=== PATIENT | female | born 1980 | race American Indian/Alaskan Native ===

== ENCOUNTER 2016-12-03 16:57 | Emergency (ER) | payer OTHER ==
[2016-12-03] MEDS ORDERED: TYLENOL ONE ×2 (17:15→17:26)
[2016-12-03] MEDS ORDERED: NACL 0.9% 500 ML 500 ML IV ONE (17:27)
[2016-12-03] MEDS ORDERED: TYLENOL PO ONE (17:30)
--- NOTE | 2016-12-03 17:53 | Emergency Department Report ---
Entered by TATE VANEGAS, acting as scribe for SILVIO OLIVAREZ PA. Chief Complaint: Dizziness Stated Complaint: DIZZINESS/FEVER Time Seen by Provider: 12/03/16 17:20 - HPI History of Present Illness: 36 y/o female presents c/o dizziness that started 2 weeks ago. Sx include fever , nausea, light headedness, increase in urination frequency but pt denies v/d. - ROS Review of Systems: as noted in HPI - Exam Vital Signs: Vital Signs 12/03/16 12/03/16 17:14 17:40 Temperature 101.4 F H Pulse Rate 111 H Respiratory 17 17 Rate Blood Pressure 119/69 O2 Sat by Pulse 98 Oximetry Physical Exam: General: 36 y/o female in no acute distress. Well-developed, well-nourished. CV: Regular rate and rhythm. No murmurs rubs or gallops. Lungs: Clear to auscultation bilaterally. Abdomen: RLQ tenderness to palpation. No guarding or rebound tenderness. Normal bowel sounds. Mini Neuro: Alert and oriented 3. MSE screening note: Focused history and physical exam performed. Due to findings the following was ordered:sepsis protocol initiated by triage nurse ED Disposition for MSE Condition: Stable This documentation as recorded by the scribe,TATE VANEGAS,accurately reflects the service I personally performed and the decisions made by SHER garcia FABIOLA N, PA.
[2016-12-03 18:23] LABS: Alanine Aminotransferase 9 units/L (7-56); Albumin 3.8 g/dL (3.9-5); Alkaline Phosphatase 80 units/L (35-129); Anion Gap 16 mmol/L; Blood Urea Nitrogen 12 mg/dL (7-17); Carbon Dioxide 23 mmol/L (22-30); Chloride 96.6 mmol/L (98-107); Glucose 98 mg/dL (65-100); Potassium 3.8 mmol/L (3.6-5.0); Sodium 132 mmol/L (137-145); Total Protein 7.7 g/dL (6.3-8.2)
[2016-12-03 18:28] LABS: Hematocrit 33.8 % (30.3-42.9); Hemoglobin 11.1 gm/dl (10.1-14.3); Mean Corpuscular HGB Conc 33 % (30-34); Mean Corpuscular Hemoglobin 27 pg (28-32); Mean Corpuscular Volume 82 fl (79-97); Platelet Count 397 K/mm3 (140-440); Red Blood Count 4.14 M/mm3 (3.65-5.03); Red Cell Distribution Width 14.7 % (13.2-15.2); White Blood Count 3.5 K/mm3 (4.5-11.0)
[2016-12-03 18:37] LABS: INR 1.07 (0.87-1.13)
[2016-12-03 19:09] LABS: Bilirubin,Urine NEG (Negative); Blood,Urine LG (Negative); Ketones,Urine NEG (Negative); Leukocyte Esterase,Urine NEG (Negative); Nitrite,Urine NEG (Negative); Protein,Urine <15 mg/dL mg/dL (Negative)
[2016-12-03 19:22] LABS: Anisocytosis 1+; Basophils % (Manual) 0 % (0.0-1.8); Blastocytes % (Manual) 0 %; Diff Status Complete; Ovalocytes 1+; Platelet Estimate Consistent w Auto
[2016-12-03 20:56] LABS: Bilirubin,Urine NEG (Negative); Blood,Urine LG (Negative); Ketones,Urine NEG (Negative); Leukocyte Esterase,Urine NEG (Negative); Mucus,Urine FEW /HPF; Nitrite,Urine NEG (Negative); Protein,Urine <15 mg/dL mg/dL (Negative)
[2016-12-03] MEDS ORDERED: NACL 0.9% 1000 ML 2,000 ML IV ONE (20:58)
[2016-12-03] MEDS ORDERED: ANTIVERT PO ONE (20:58)
[2016-12-03] MEDS ORDERED: TORADOL IV ONE (20:58)
--- NOTE | 2016-12-03 21:01 | Emergency Department Report ---
ED General Adult HPI - General Chief complaint: Dizziness Stated complaint: DIZZINESS/FEVER Time Seen by Provider: 12/03/16 20:43 Source: patient, RN notes reviewed Mode of arrival: Ambulatory Limitations: No Limitations - History of Present Illness Initial comments: This is a 36-year-old female. She is previously unknown to me. Her primary care provider is at [place]. She does not recall their name. Her multiple sclerosis physician is Dr. Lew Chambers; she reports not taking any medications for her multiple sclerosis at the current time. The patient presents to the ER complaining of dizziness. The dizziness started at 11:30 in the morning. It is described as a sensation of room spinning. It is intermittent. There is no tinnitus, there is no change in auditory acuity, there is no severe headache. There is no sore throat. There is no chest pain. There is no shortness of breath. There is mild dry cough with occasional mucous. The patient denies hematemesis, bright red blood per rectum, irritative and obstructive urinary symptoms. She reports that she is currently on her menstruation and that she is not . She reports intermittent right lower quadrant pain and pressure, which is described as achy in nature. She reports having an outpatient CAT scan a few weeks ago which she thinks demonstrated a "thrombosis." She denies vaginal discharge, and she indicates one sexual partner within the past year, denies vaginal discharge at this time. She reports that she gave a urinalysis at her primary care provider's office, and was placed on Flagyl. She reports completing the Flagyl, but not having any symptoms at that time. -: Gradual Location: abdomen Severity scale (0 -10): 2 Quality: aching Consistency: intermittent Improves with: rest Worsens with: movement Associated Symptoms: cough, fever/chills, other (per hpi). denies: confusion, chest pain, loss of appetite, malaise, nausea/vomiting, shortness of breath, syncope, weakness - Related Data Previous Rx's Medication Instructions Recorded Last Taken Type Dicyclomine [Bentyl] 10 mg PO QID PRN #20 capsule 12/03/16 Unknown Rx Ketorolac [Toradol] 10 mg PO Q6H PRN #20 tablet 12/03/16 Unknown Rx Meclizine [Antivert] 25 mg PO TID PRN #20 tablet 12/03/16 Unknown Rx Ondansetron [Zofran Odt] 4 mg PO QID PRN #20 tab.rapdis 12/03/16 Unknown Rx Allergies Allergy/AdvReac Type Severity Reaction Status Date / Time No Known Allergies Allergy Unverified 12/03/16 17:11 ED Review of Systems ROS: Stated complaint: DIZZINESS/FEVER Other details as noted in HPI Constitutional: denies: fever Eyes: denies: vision change ENT: denies: epistaxis Respiratory: denies: cough Cardiovascular: denies: chest pain Gastrointestinal: abdominal pain Genitourinary: as per HPI. denies: dysuria, frequency, discharge Musculoskeletal: as per HPI Skin: denies: lesions Neurological: vertigo. denies: abnormal gait Psychiatric: as per HPI ED Past Medical Hx - Past Medical History Additional medical history: MULTIPLE SCLEROSIS - Surgical History Additional Surgical History: - Social History Smoking Status: Never Smoker Substance Use Type: Alcohol - Medications Home Medications: Home Medications Medication Instructions Recorded Confirmed Last Taken Type Dicyclomine [Bentyl] 10 mg PO QID PRN #20 capsule 12/03/16 Unknown Rx Ketorolac [Toradol] 10 mg PO Q6H PRN #20 tablet 12/03/16 Unknown Rx Meclizine [Antivert] 25 mg PO TID PRN #20 tablet 12/03/16 Unknown Rx Ondansetron [Zofran Odt] 4 mg PO QID PRN #20 tab.rapdis 12/03/16 Unknown Rx ED Physical Exam - General Limitations: No Limitations General appearance: alert, in no apparent distress - Head Head exam: Present: atraumatic, normocephalic - Eye Eye exam: Present: normal appearance, PERRL, EOMI, other (visual acuity intact to finger counting, color perception, reading at a close distance.). Absent: nystagmus - ENT ENT exam: Present: normal exam, normal orophraynx, mucous membranes moist, TM's normal bilaterally, normal external ear exam, other (there is no mastoid tenderness. There is no helix tenderness.) - Neck Neck exam: Present: normal inspection, full ROM. Absent: tenderness, meningismus - Respiratory Respiratory exam: Present: normal lung sounds bilaterally. Absent: respiratory distress, wheezes, rales, rhonchi, stridor, chest wall tenderness, accessory muscle use, decreased breath sounds, prolonged expiratory - Cardiovascular Cardiovascular Exam: Present: normal rhythm, tachycardia, normal heart sounds. Absent: systolic murmur, diastolic murmur, rubs, gallop - GI/Abdominal GI/Abdominal exam: Present: soft, tenderness, normal bowel sounds, other (there is mild right lower quadrant tenderness, there is no rebound, guarding or peritoneal signs). Absent: distended, guarding, rebound, rigid, pulsatile mass - External exam: Present: normal external exam Speculum exam: Present: vaginal bleeding Bi-manual exam: Present: normal bi-manual exam, other (escorted by nurse CHIO GRAY). Absent: cervical motion tendernes, adnexal tenderness, adnexal mass - Extremities Exam Extremities exam: Present: normal inspection, full ROM, normal capillary refill. Absent: tenderness, pedal edema, joint swelling, calf tenderness - Back Exam Back exam: Present: normal inspection, full ROM. Absent: tenderness, CVA tenderness (R), CVA tenderness (L), muscle spasm, paraspinal tenderness, vertebral tenderness - Neurological Exam Neurological exam: Present: alert, oriented X3, normal gait (normal gait, normal tandem gait, negative Romberg, normal [id number], negative pass pointing, no pronator drift.), other (Extraocular movements intact. Tongue midline. No facial droop. Facial sensation intact to light touch in the V1, V2 , V3 distribution bilaterally. 5 and 5 strength in 4 extremities.. Sensation is intact to light touch in 4 extremities.). Absent: motor sensory deficit - Psychiatric Psychiatric exam: Present: normal affect, normal mood - Skin Skin exam: Present: warm, dry, intact, normal color. Absent: rash ED Course Vital Signs 12/03/16 12/03/16 12/03/16 17:14 17:40 18:40 Temperature 101.4 F H Pulse Rate 111 H Respiratory 17 17 18 Rate Blood Pressure 119/69 O2 Sat by Pulse 98 Oximetry 12/03/16 12/03/16 12/03/16 19:06 19:10 19:20 Temperature Pulse Rate 97 H 99 H 94 H Respiratory 27 H 25 H 18 Rate Blood Pressure 108/59 113/66 O2 Sat by Pulse 98 97 Oximetry 12/03/16 12/03/16 12/03/16 19:30 19:35 19:40 Temperature 99.7 F H Pulse Rate 93 H 96 H Respiratory 19 25 H Rate Blood Pressure 113/66 120/65 O2 Sat by Pulse 98 Oximetry 12/03/16 12/03/16 12/03/16 19:50 20:00 20:17 Temperature Pulse Rate 93 H 94 H 98 H Respiratory 20 23 22 Rate Blood Pressure 115/64 115/64 113/66 O2 Sat by Pulse 98 96 99 Oximetry 12/03/16 12/03/16 12/03/16 20:21 20:31 20:41 Temperature Pulse Rate 99 H 94 H 97 H Respiratory 26 H 26 H 24 Rate Blood Pressure 113/66 107/59 111/62 O2 Sat by Pulse 98 100 99 Oximetry 12/03/16 12/03/16 12/03/16 21:13 21:19 22:39 Temperature Pulse Rate Respiratory 18 Rate Blood Pressure 120/74 115/67 O2 Sat by Pulse 98 98 Oximetry 12/03/16 12/03/16 12/03/16 22:41 22:51 23:00 Temperature Pulse Rate 83 85 80 Respiratory 25 H 20 19 Rate Blood Pressure 115/67 109/63 110/65 O2 Sat by Pulse 98 98 98 Oximetry 12/03/16 12/03/16 12/03/16 23:11 23:21 23:23 Temperature Pulse Rate Respiratory 21 17 17 Rate Blood Pressure 110/65 109/61 109/61 O2 Sat by Pulse 97 97 97 Oximetry 12/03/16 23:30 Temperature Pulse Rate Respiratory 18 Rate Blood Pressure 108/58 O2 Sat by Pulse Oximetry - Reevaluation(s) Reevaluation #1: 12/03/16 21:23 Differential diagnosis: Viral labyrinthitis, peripheral vertigo, urinary tract infection, appendicitis, renal colic, urinary tract infection, pelvic inflammatory disease, ovarian cyst, nonspecific thrombosis Assessment and plan: 36-year-old female with nonspecific intermittent vertigo, and acute febrile illness, most likely viral labyrinthitis. Low-grade temperature appreciated, however she is remarkably well-appearing, and has a benign neurologic examination. Minimal lower abdominal tenderness which is acute on chronic, benign gynecologic examination. She will be treated symptomatically. Clinically doubt that she is bacteremic. Leukopenia is appreciated, she can follow up with the primary care physician for this. She will be treated symptomatically, we will obtain a CT scan of the abdomen and pelvis. We will reassess once this has resulted. Reevaluation #2: 12/03/16 22:54 the patient is reassessed. The abdomen is soft on repeat examination. The CT scan does not demonstrate any acute disease. Tachycardia resolved. The patient is tolerating liquid feeds. She feels improved. Wet prep is negative. The patient will be discharged with symptomatic therapy, instructions to follow up with primary care. Return precautions are extensively reviewed. ED Medical Decision Making - Lab Data Result diagrams: 12/03/16 17:39 12/03/16 17:39 Vital Signs 12/03/16 12/03/16 12/03/16 17:14 17:40 18:40 Temperature 101.4 F H Pulse Rate 111 H Respiratory 17 17 18 Rate Blood Pressure 119/69 O2 Sat by Pulse 98 Oximetry 12/03/16 12/03/16 12/03/16 19:06 19:10 19:20 Temperature Pulse Rate 97 H 99 H 94 H Respiratory 27 H 25 H 18 Rate Blood Pressure 108/59 113/66 O2 Sat by Pulse 98 97 Oximetry 12/03/16 12/03/16 12/03/16 19:35 20:17 20:21 Temperature 99.7 F H Pulse Rate 98 H 99 H Respiratory 22 26 H Rate Blood Pressure 113/66 113/66 O2 Sat by Pulse 99 98 Oximetry 12/03/16 21:19 Temperature Pulse Rate Respiratory 18 Rate Blood Pressure O2 Sat by Pulse Oximetry Lab Results 12/03/16 12/03/16 12/03/16 Range/Units 17:39 17:39 17:39 WBC 3.5 L (4.5-11.0) K/mm3 RBC 4.14 (3.65-5.03) M/mm3 Hgb 11.1 (10.1-14.3) gm/dl Hct 33.8 (30.3-42.9) % MCV 82 (79-97) fl MCH 27 L (28-32) pg MCHC 33 (30-34) % RDW 14.7 (13.2-15.2) % Plt Count 397 (140-440) K/mm3 [place] % (Auto) Coremaker Machine Add Manual Diff Complete Total Counted 100 Seg Neuts % (Manual) 77.0 H (40.0-70.0) % Band Neutrophils % 0 % Lymphocytes % (Manual) 8.0 L (13.4-35.0) % Reactive Lymphs % (Man) 0 % Monocytes % (Manual) 13.0 H (0.0-7.3) % Eosinophils % (Manual) 2.0 (0.0-4.3) % Basophils % (Manual) 0 (0.0-1.8) % Metamyelocytes % 0 % Myelocytes % 0 % Promyelocytes % 0 % Blast Cells % 0 % Nucleated RBC % Not Reportable Seg Neutrophils # Man 2.7 (1.8-7.7) K/mm3 Band Neutrophils # 0.0 K/mm3 Lymphocytes # (Manual) 0.3 L (1.2-5.4) K/mm3 Abs React Lymphs (Man) 0.0 K/mm3 Monocytes # (Manual) 0.5 (0.0-0.8) K/mm3 Eosinophils # (Manual) 0.1 (0.0-0.4) K/mm3 Basophils # (Manual) 0.0 (0.0-0.1) K/mm3 Metamyelocytes # 0.0 K/mm3 Myelocytes # 0.0 K/mm3 Promyelocytes # 0.0 K/mm3 Blast Cells # 0.0 K/mm3 WBC Morphology Not Reportable Hypersegmented Neuts Not Reportable Hyposegmented Neuts Not Reportable Hypogranular Neuts Not Reportable Smudge Cells Not Reportable Toxic Granulation Not Reportable Toxic Vacuolation Not Reportable Dohle Bodies Not Reportable Pelger-Huet Anomaly Not Reportable Serene Rods Not Reportable Platelet Estimate Consistent w auto Clumped Platelets Not Reportable Plt Clumps, EDTA Not Reportable Large Platelets Not Reportable Giant Platelets Not Reportable Platelet Satelliting Not Reportable Plt Morphology Comment Not Reportable RBC Morphology Not Reportable Dimorphic RBCs Not Reportable Polychromasia Not Reportable Hypochromasia Not Reportable Poikilocytosis Not Reportable Anisocytosis 1+ Microcytosis Not Reportable Macrocytosis Not Reportable Spherocytes Not Reportable Pappenheimer Bodies Not Reportable Sickle Cells Not Reportable Target Cells Not Reportable Tear Drop Cells Not Reportable Ovalocytes 1+ Helmet Cells Not Reportable Cuevas-Crandall Bodies Not Reportable Hickman Rings Not Reportable Nannette Cells Not Reportable Bite Cells Not Reportable Crenated Cell Not Reportable Elliptocytes Not Reportable Acanthocytes (Spur) Not Reportable Rouleaux Not Reportable Hemoglobin C Crystals Not Reportable Schistocytes Not Reportable Malaria parasites Not Reportable Rui Bodies Not Reportable Hem Pathologist Commnt No PT 13.8 (12.2-14.9) Sec. INR 1.07 (0.87-1.13) VBG pH (7.320-7.420) Sodium 132 L (137-145) mmol/L Potassium 3.8 (3.6-5.0) mmol/L Chloride 96.6 L (98-107) mmol/L Carbon Dioxide 23 (22-30) mmol/L Anion Gap 16 mmol/L BUN 12 (7-17) mg/dL Creatinine 0.8 (0.7-1.2) mg/dL Estimated GFR > 60 ml/min BUN/Creatinine Ratio 15.00 % Glucose 98 (65-100) mg/dL Lactic Acid (0.7-2.0) mmol/L Calcium 9.0 (8.4-10.2) mg/dL Total Bilirubin 0.40 (0.1-1.2) mg/dL AST 14 (5-40) units/L ALT 9 (7-56) units/L Alkaline Phosphatase 80 (35-129) units/L Total Protein 7.7 (6.3-8.2) g/dL Albumin 3.8 L (3.9-5) g/dL Albumin/Globulin Ratio 1.0 % Urine Color (Yellow) Urine Turbidity (Clear) Urine pH (5.0-7.0) Ur Specific [place] (1.003-1.030) Urine Protein (Negative) mg/dL Urine Glucose (UA) (Negative) mg/dL Urine Ketones (Negative) mg/dL Urine Blood (Negative) Urine Nitrite (Negative) Urine Bilirubin (Negative) Urine Urobilinogen (<2.0) mg/dL Ur Leukocyte Esterase (Negative) Urine WBC (Auto) (0.0-6.0) /HPF Urine RBC (Auto) (0.0-6.0) /HPF U Epithel Cells (Auto) (0-13.0) /HPF Urine Mucus /HPF Urine HCG, Qual (Negative) 12/03/16 12/03/16 12/03/16 Range/Units 17:39 17:39 18:52 WBC (4.5-11.0) K/mm3 RBC (3.65-5.03) M/mm3 Hgb (10.1-14.3) gm/dl Hct (30.3-42.9) % MCV (79-97) fl MCH (28-32) pg MCHC (30-34) % RDW (13.2-15.2) % Plt Count (140-440) K/mm3 [place] % (Auto) Add Manual Diff Total Counted Seg Neuts % (Manual) (40.0-70.0) % Band Neutrophils % % Lymphocytes % (Manual) (13.4-35.0) % Reactive Lymphs % (Man) % Monocytes % (Manual) (0.0-7.3) % Eosinophils % (Manual) (0.0-4.3) % Basophils % (Manual) (0.0-1.8) % Metamyelocytes % % Myelocytes % % Promyelocytes % % Blast Cells % % Nucleated RBC % Seg Neutrophils # Man (1.8-7.7) K/mm3 Band Neutrophils # K/mm3 Lymphocytes # (Manual) (1.2-5.4) K/mm3 Abs React Lymphs (Man) K/mm3 Monocytes # (Manual) (0.0-0.8) K/mm3 Eosinophils # (Manual) (0.0-0.4) K/mm3 Basophils # (Manual) (0.0-0.1) K/mm3 Metamyelocytes # K/mm3 Myelocytes # K/mm3 Promyelocytes # K/mm3 Blast Cells # K/mm3 WBC Morphology Hypersegmented Neuts Hyposegmented Neuts Hypogranular Neuts Smudge Cells Toxic Granulation Toxic Vacuolation Dohle Bodies Pelger-Huet Anomaly Serene Rods Platelet Estimate Clumped Platelets Plt Clumps, EDTA Large Platelets Giant Platelets Platelet Satelliting Plt Morphology Comment RBC Morphology Dimorphic RBCs Polychromasia Hypochromasia Poikilocytosis Anisocytosis Microcytosis Macrocytosis Spherocytes Pappenheimer Bodies Sickle Cells Target Cells Tear Drop Cells Ovalocytes Helmet Cells Cuevas-Crandall Bodies Hickman Rings [place] Cells Bite Cells Crenated Cell Elliptocytes Acanthocytes (Spur) Rouleaux Hemoglobin C Crystals Schistocytes Malaria parasites Rui Bodies Hem Pathologist Commnt PT (12.2-14.9) Sec. INR (0.87-1.13) VBG pH 7.395 (7.320-7.420) Sodium (137-145) mmol/L Potassium (3.6-5.0) mmol/L Chloride (98-107) mmol/L Carbon Dioxide (22-30) mmol/L Anion Gap mmol/L BUN (7-17) mg/dL Creatinine (0.7-1.2) mg/dL Estimated GFR ml/min BUN/Creatinine Ratio % Glucose (65-100) mg/dL Lactic Acid 0.70 (0.7-2.0) mmol/L Calcium (8.4-10.2) mg/dL Total Bilirubin (0.1-1.2) mg/dL AST (5-40) units/L ALT (7-56) units/L Alkaline Phosphatase (35-129) units/L Total Protein (6.3-8.2) g/dL Albumin (3.9-5) g/dL Albumin/Globulin Ratio % Urine Color Yellow (Yellow) Urine Turbidity Clear (Clear) Urine pH 7.0 (5.0-7.0) Ur Specific [place] 1.020 (1.003-1.030) Urine Protein <15 mg/dl (Negative) mg/dL Urine Glucose (UA) Neg (Negative) mg/dL Urine Ketones Neg (Negative) mg/dL Urine Blood Lg (Negative) Urine Nitrite Neg (Negative) Urine Bilirubin Neg (Negative) Urine Urobilinogen 2.0 (<2.0) mg/dL Ur Leukocyte Esterase Neg (Negative) Urine WBC (Auto) 1.0 (0.0-6.0) /HPF Urine RBC (Auto) 102.0 (0.0-6.0) /HPF U Epithel Cells (Auto) 1.0 (0-13.0) /HPF Urine Mucus /HPF Urine HCG, Qual (Negative) 12/03/16 12/03/16 12/03/16 Range/Units 20:08 20:30 20:31 WBC (4.5-11.0) K/mm3 RBC (3.65-5.03) M/mm3 Hgb (10.1-14.3) gm/dl Hct (30.3-42.9) % MCV (79-97) fl MCH (28-32) pg MCHC (30-34) % RDW (13.2-15.2) % Plt Count (140-440) K/mm3 [place] % (Auto) Add Manual Diff Total Counted Seg Neuts % (Manual) (40.0-70.0) % Band Neutrophils % % Lymphocytes % (Manual) (13.4-35.0) % Reactive Lymphs % (Man) % Monocytes % (Manual) (0.0-7.3) % Eosinophils % (Manual) (0.0-4.3) % Basophils % (Manual) (0.0-1.8) % Metamyelocytes % % Myelocytes % % Promyelocytes % % Blast Cells % % Nucleated RBC % Seg Neutrophils # Man (1.8-7.7) K/mm3 Band Neutrophils # K/mm3 Lymphocytes # (Manual) (1.2-5.4) K/mm3 Abs React Lymphs (Man) K/mm3 Monocytes # (Manual) (0.0-0.8) K/mm3 Eosinophils # (Manual) (0.0-0.4) K/mm3 Basophils # (Manual) (0.0-0.1) K/mm3 Metamyelocytes # K/mm3 Myelocytes # K/mm3 Promyelocytes # K/mm3 Blast Cells # K/mm3 WBC Morphology Hypersegmented Neuts Hyposegmented Neuts Hypogranular Neuts Smudge Cells Toxic Granulation Toxic Vacuolation Dohle Bodies Pelger-Huet Anomaly Serene Rods Platelet Estimate Clumped Platelets Plt Clumps, EDTA Large Platelets Giant Platelets Platelet Satelliting Plt Morphology Comment RBC Morphology Dimorphic RBCs Polychromasia Hypochromasia Poikilocytosis Anisocytosis Microcytosis Macrocytosis Spherocytes Pappenheimer Bodies Sickle Cells Target Cells Tear Drop Cells Ovalocytes Helmet Cells Cuevas-Crandall Bodies Hickman Rings Nannette Cells Bite Cells Crenated Cell Elliptocytes Acanthocytes (Spur) Rouleaux Hemoglobin C Crystals Schistocytes Malaria parasites Rui Bodies Hem Pathologist Commnt PT (12.2-14.9) Sec. INR (0.87-1.13) VBG pH (7.320-7.420) Sodium (137-145) mmol/L Potassium (3.6-5.0) mmol/L Chloride (98-107) mmol/L Carbon Dioxide (22-30) mmol/L Anion Gap mmol/L BUN (7-17) mg/dL Creatinine (0.7-1.2) mg/dL Estimated GFR ml/min BUN/Creatinine Ratio % Glucose (65-100) mg/dL Lactic Acid 0.70 (0.7-2.0) mmol/L Calcium (8.4-10.2) mg/dL Total Bilirubin (0.1-1.2) mg/dL AST (5-40) units/L ALT (7-56) units/L Alkaline Phosphatase (35-129) units/L Total Protein (6.3-8.2) g/dL Albumin (3.9-5) g/dL Albumin/Globulin Ratio % Urine Color Yellow (Yellow) Urine Turbidity Clear (Clear) Urine pH 7.0 (5.0-7.0) Ur Specific [place] 1.020 (1.003-1.030) Urine Protein <15 mg/dl (Negative) mg/dL Urine Glucose (UA) Neg (Negative) mg/dL Urine Ketones Neg (Negative) mg/dL Urine Blood Lg (Negative) Urine Nitrite Neg (Negative) Urine Bilirubin Neg (Negative) Urine Urobilinogen 2.0 (<2.0) mg/dL Ur Leukocyte Esterase Neg (Negative) Urine WBC (Auto) 2.0 (0.0-6.0) /HPF Urine RBC (Auto) 108.0 (0.0-6.0) /HPF U Epithel Cells (Auto) 2.0 (0-13.0) /HPF Urine Mucus Few /HPF Urine HCG, Qual Negative (Negative) - EKG Data -: EKG Interpreted by Me - EKG Data When compared to previous EKG there are: previous EKG unavailable 12/03/16 21:24 Normal sinus, 97 bpm, normal intervals, normal axis, incomplete right bundle branch block, not morphologically consistent with STEMI, there is no prior for comparison. - Radiology Data Radiology results: report reviewed interpreted by me: X-ray of the chest is negative for acute disease The CT scan of the abdomen and pelvis is negative for acute disease, x-ray of the chest is negative for acute disease. Critical care attestation.: If time is entered above; I have spent that time in minutes in the direct care of this critically ill patient, excluding procedure time. ED Disposition Clinical Impression: Dizziness, Lower abdominal pain Disposition: DISCHARGED TO HOME OR SELFCARE Is pt being admited?: No Does the pt Need Aspirin: No Condition: Good Instructions: Vertigo (ED), Abdominal Pain (ED) Additional Instructions: Discharge diagnosis: Dizziness, lower abdominal pain As we discussed, laboratory studies, x-ray of the chest, EKG, chest x-ray were essentially unremarkable, did not demonstrate any condition that would require urgent surgical intervention or antibiotic therapy. Take the pain medication, nausea medication, vertigo/dizziness medication as directed. Follow-up with primary care doctor within the next 3-5 days. Cultures were sent today, results will be available next 3-5 days. Have your primary care doctor contact the medical records department to obtain culture results. Breast and avoid heavy lifting, strenuous physical activity. Return to the ER right away with new pain, worsened pain, migration of pain, fevers or chills, nausea or vomiting, inability to tolerate liquid feeds. Dr. Lopez is a local primary care doctor. The [facility] is a local clinic available for your convenience. Prescriptions: Dicyclomine [Bentyl] 10 mg PO QID PRN #20 capsule PRN Reason: Pain Ketorolac [Toradol] 10 mg PO Q6H PRN #20 tablet PRN Reason: Pain Meclizine [Antivert] 25 mg PO TID PRN #20 tablet PRN Reason: Vertigo Ondansetron [Zofran Odt] 4 mg PO QID PRN #20 tab.rapdis PRN Reason: Nausea Referrals: PRIMARY CARE, [Primary Care Provider] - 3-5 Days COLEMAN LOPEZ MD [Staff Physician] - 3-5 Days [facility] [Provider Group] - 3-5 Days Forms: Work/School Release Form(ED)
--- NOTE | 2016-12-03 21:08 | XRay Report ---
FINAL REPORT EXAM: XR CHEST 1V AP HISTORY: Sepsis; SOB TECHNIQUE: Single-view chest PRIORS: None. FINDINGS: No focal consolidations are seen in the lungs.The cardiomediastinal silhouette is within normal limits for size and contour. No acute osseous abnormality is identified. IMPRESSION: 1. No definite radiographic evidence of acute cardiopulmonary disease. 2. No focal infiltrate is identified.
[2016-12-03] MEDS ORDERED: NACL ONE (21:10)
--- NOTE | 2016-12-03 22:05 | Cat Scan Report ---
FINAL REPORT EXAM: CT ABDOMEN PELVIS W CON HISTORY: lower abd pain fever TECHNIQUE: Serial axial images through the abdomen and pelvis with coronal and sagittal reconstruction. Intravenous administration 100 milliliters Omnipaque 300 PRIORS: None. FINDINGS: No focal consolidations are seen in the lung bases. No pleural effusion is seen. There is an 11 millimeter cyst in the right lobe of the liver. Gallbladder appears normal. Pancreas appears normal. Spleen appears normal. Adrenal glands appear normal. Kidneys appear normal. Aorta is normal in caliber. Bladder appears normal. No gross abnormality is seen in the uterus. There is a 2.7 centimeter right ovarian cyst. No free fluid. Appendix appears normal. No gross bowel abnormality is identified. No acute osseous abnormality is identified. IMPRESSION: 1. Normal appearing appendix. 2. 2.7 centimeter right ovarian cyst. 3. 11 millimeter hepatic cyst. 4. No free fluid or inflammatory changes are seen in the abdomen or pelvis.
[2016-12-04 01:03] VITALS: BP 108/58
== END 2016-12-03 23:40 | disposition home or self-care (01) ==
LOC: ED 16:57
DX: R42 Dizziness and giddiness (principal); R10.31 Right lower quadrant pain; G35 Multiple sclerosis
CPT/HCPCS: 36415; 71010; 74177; 80053; 81001; 81025; 82140; 82805; 85007; 85025; 85610; 87040; 87086; 87210; 87591; 93005; 93010; 96361; 96374; 99285; J1885; J7030; Q9967